=== PATIENT | female | born 1940 | race Two or more races ===

== ENCOUNTER 2019-05-23 23:22 | Inpatient (IN) | payer MEDICARE, MEDICAID ==
[~2019-05-23] VITALS: Ht 172.7 cm; Wt 48.7 kg
[2019-05-24 02:31] LABS: Albumin 3.6 g/dL (3.4-5.0); Anion Gap 9 (5-15); Blood Urea Nitrogen 8 mg/dL (7-18); Calcium 9.1 mg/dL (8.5-10.1); Carbon Dioxide 25 mmol/L (21-32); Chloride 105 mmol/L (98-107); Glucose 107 mg/dL (74-106); Magnesium 2.5 mg/dL (1.6-2.6); Potassium 3.7 mmol/L (3.5-5.1); Sodium 139 mmol/L (136-145)
[2019-05-24 02:33] LABS: BUN/Creatinine Ratio 15.7; Blood Alcohol < 3.0 mg/dL (0-5); GFR African American 150 mL/min; GFR Non-African American 124 mL/min
[2019-05-24 02:38] LABS: Alanine Aminotransferase 11 U/L (13-56); Alkaline Phosphatase 125 U/L (45-117); Aspartate Aminotransferase 23 U/L (15-37); Bilirubin, Total 0.7 mg/dL (0.2-1.0); Total Protein 8.5 g/dL (6.4-8.2)
[2019-05-24] MEDS ORDERED: fentaNYL CITRATE 100 MCG/2 ML VL IV ONE (02:45)
[2019-05-24 02:46] LABS: Basophils # (auto) 0.1 uL; Basophils % (auto) 0.7 % (0.0-2.0); Eosinophils # (auto) 0 uL; Eosinophils % (auto) 0.2 % (0.0-7.0); Hematocrit 43.4 % (36.0-46.0); Hemoglobin 15.1 g/dL (12.2-16.2); Lymphocytes # (auto) 2.3 uL; Lymphocytes % (auto) 18.7 % (10.0-50.0); Mean Corpuscular Hgb Conc. 34.8 g/dL (32.0-36.0); Mean Corpuscular Volume 89.2 fL (80.0-100.0); Monocytes # (auto) 0.8 uL; Monocytes % (auto) 6.2 % (0.0-12.0); Neutrophils # (auto) 9.1 uL; Neutrophils % (auto) 74.2 % (37.0-80.0); Nucleated Red Blood Cells % 0.3 %; Platelet Count (auto) 371 10^3/uL (140-450); Red Blood Cells 4.87 10^6/uL (4.0-5.20); Red Cell Distribution Width 13.9 % (11.8-14.3); White Blood Cell 12.3 10^3/uL (4.4-10.8)
[2019-05-24] MEDS ORDERED: ONDANSETRON HCL 4 MG/2 ML VIAL IV ONE (03:30)
[2019-05-24 04:22] LABS: Urine Bacteria NONE SEEN /hpf (None Seen); Urine Blood 2+ /uL (Negative); Urine Mucus FEW (None Seen); Urine Specific Gravity 1.017 (1.001-1.035); Urine WBC 15 /hpf (0 - 5)
[2019-05-24] MEDS ORDERED: LEVOFLOXACIN 750MG 150 ML IV ONE (05:30)
[2019-05-24] MEDS ORDERED: NITROGLYCERIN 0.4 MG SL TAB SL PRN (10:45)
[2019-05-24] MEDS ORDERED: ACETAMINOPHEN 500 MG TAB PO PRN (10:45)
[2019-05-24] MEDS ORDERED: ONDANSETRON HCL 4 MG/2 ML VIAL IV PRN (10:45)
[2019-05-24] MEDS ORDERED: ENALAPRILAT 1.25 MG/ML-1ML VIAL IV PRN (10:45)
[2019-05-24] MEDS ORDERED: MORPHINE SULF INJ 2 MG/ML SYRINGE 1ML IV PRN ×2 (10:45)
[2019-05-24] MEDS ORDERED: HYDROcodone-ACET 5/325MG TAB PO PRN (10:45)
[2019-05-24] MEDS ORDERED: DEXTROSE (50%) 50ML SYRG IV PRN (11:00)
[2019-05-24] MEDS: ACCU-CHEK COMFORT CURVE STRIP VI SCH ×3 (11:30→21:27)
[2019-05-24] MEDS: InsuLIN REG 1unit/0.01ml Soln (100units/ml) SC SCH ×3 (11:30→21:34)
--- NOTE | 2019-05-24 11:50 | NUR ---
Telemetry admit from ER DORINAJANIS admitted to Telemetry unit after SBAR received. Patient oriented to Roshni Corrales, RN primary RN, unit, room, bed, and unit policies regarding patient care and visiting hours. Patient now on continuous telemetry monitoring, tele box # 7 and telemetry reading on arrival to unit is []. Patient placed on bedside oxygen, weighed by bedscale and encouraged to call if they need something. All questions and concerns addressed, patient verbalized understanding. Note: Patient has a history of Alzheimer's disease and dementia. She is not able to provide information re medical history or home medications.
[2019-05-24 12:10] VITALS: BP 155/83
--- NOTE | 2019-05-24 13:00 | NUR ---
Patient refusing to be turned for skin assessment. Patient yells when moved. Extremities stiff, hand and feet show signs of arthritis. Will continue to monitor.
[2019-05-24] MEDS: SODIUM CHLORIDE 0.9% 1,000 ML IV SCH (14:00)
[2019-05-24 16:43] VITALS: BP 140/83
--- NOTE | 2019-05-24 17:34 | NUR ---
Patient is pleasantly confused, talks constantly. Patient turned for skin assessment. Skin to back and buttocks clear. Will continue to monitor.
--- NOTE | 2019-05-24 20:00 | NUR ---
RECEIVE IN BED IS TALKING TO HERSELF REPOSITIONED AND MADE COMFORTABLE
[2019-05-24 21:56] VITALS: BP 168/97
[2019-05-25] MEDS: SODIUM CHLORIDE 0.9% 1,000 ML IV SCH ×3 (02:00→21:00)
[2019-05-25 04:34] VITALS: BP 146/84
[2019-05-25 05:11] LABS: Basophils # (auto) 0 uL; Basophils % (auto) 0.4 % (0.0-2.0); Eosinophils # (auto) 0 uL; Eosinophils % (auto) 0.2 % (0.0-7.0); Hematocrit 38.7 % (36.0-46.0); Hemoglobin 13.2 g/dL (12.2-16.2); Lymphocytes # (auto) 1.6 uL; Lymphocytes % (auto) 15.8 % (10.0-50.0); Mean Corpuscular Hemoglobin 31.4 pg (28.0-32.0); Mean Corpuscular Volume 92.4 fL (80.0-100.0); Monocytes # (auto) 0.9 uL; Monocytes % (auto) 8.7 % (0.0-12.0); Neutrophils # (auto) 7.4 uL; Neutrophils % (auto) 74.9 % (37.0-80.0); Platelet Count (auto) 281 10^3/uL (140-450); Red Blood Cells 4.19 10^6/uL (4.0-5.20); Red Cell Distribution Width 13.8 % (11.8-14.3); White Blood Cell 9.8 10^3/uL (4.4-10.8)
[2019-05-25 05:23] LABS: Calcium 8.5 mg/dL (8.5-10.1); Potassium 3.6 mmol/L (3.5-5.1)
[2019-05-25 05:26] LABS: BUN/Creatinine Ratio 36.4
[2019-05-25] MEDS: ACCU-CHEK COMFORT CURVE STRIP VI SCH ×4 (06:31→22:00)
[2019-05-25] MEDS: InsuLIN REG 1unit/0.01ml Soln (100units/ml) SC SCH ×4 (06:32→21:59)
--- NOTE | 2019-05-25 07:30 | NUR ---
Opening Shift Note Assumed care of patient, awake and confused. No S/S of distress/SOB or pain. Instructed on POC and to call for assist PRN, will continue to monitor for changes Q1hr and PRN.
[2019-05-25 09:15] VITALS: BP 152/85
[2019-05-25] MEDS: ASPirin-EC 81 mg tab PO SCH (09:52)
[2019-05-25] MEDS: FAMOTIDINE 20 MG TAB PO SCH (09:52)
[2019-05-25] MEDS: cefTRIAXone 1GM/50ML D5W 50 ML IV SCH (09:53)
--- NOTE | 2019-05-25 11:00 | NUR ---
WOUND CARE NOTE: IN TO SEE PATIENT AT THIS TIME FOR SKIN INTEGRITY MONITORING. PATIENT WAS RECENTLY ADMITTED TO [facility] WITH DIAGNOSIS OF SEPSIS. CURRENT KIRAN SCORE IS 12. PATIENT HAS HISTORY WITH SEVERE OSTEOARTHRITIS. MOBILITY IS A MAJOR FACTOR, SHE IS IN SEVERE PAIN WITH ANY MOVEMENT. CURRENTLY, SHE IS BEDBOUND. PATIENT'S SKIN ASSESSED. SHE HAS PINK BONY PROMINENCES, NO OPEN OR DRAINING WOUNDS NOTED. REPOSITIONED PATIENT ONTO RIGHT SIDE, REDISTRIBUTING PRESSURE POINTS USING PILLOWS/WEDGES. RECOMMEND: SPECIALTY AIR MATTRESS, FREQUENT TURN SCHEDULE Q 2 HOURS, PRN CONDITION PERMITS, WITH PRESSURE REDISTRIBUTION USING PILLOWS/WEDGES, BID/PRN APPLICATION WITH MOISTURE BARRIER CREAM, OPTIFOAM GENTLE SACRAL DRESSING PREVENTATIVE, DIETARY CONSULT, SKIN/WOUND CARE PLAN, CONTINUED MONITORING BY WOUND CARE TEAM.
[2019-05-25 12:28] VITALS: BP 149/80
[2019-05-25 17:00] VITALS: BP 155/81
--- NOTE | 2019-05-25 20:00 | NUR ---
RECEIVE IN BED IS MADE AWARE SHE WILL BE PLACED ON AIR MATTRESS DENIES PAIN AT THIS TIME
[2019-05-25 21:48] VITALS: BP 139/71
--- NOTE | 2019-05-26 | NUR ---
IS ON AIR MATTRESS KEEPS TALKING TO HERSELF IS CONFUSED MADE COMFORTABLE
[2019-05-26] MEDS: SODIUM CHLORIDE 0.9% 1,000 ML IV SCH ×3 (03:00→18:35)
[2019-05-26 04:56] VITALS: BP 153/82
--- NOTE | 2019-05-26 08:00 | NUR ---
Received pt resting in bed, call light within reach, air mattress on, walton draining to gravity, pt refused complete skin assessment, pt stated that she does not want to be bother right now and does not want to be moved at this time, and that pt was just turned. will continue to monitor pt.
--- NOTE | 2019-05-26 08:30 | NUR ---
Dr. Diaz at bed side to see pt with charge nurse, doctor seen pt and discussed the plan of care with pt.
[2019-05-26 09:00] VITALS: BP 126/100
[2019-05-26 10:00] VITALS: BP 141/66
[2019-05-26] MEDS: ASPirin-EC 81 mg tab PO SCH (11:01)
[2019-05-26] MEDS: cefTRIAXone 1GM/50ML D5W 50 ML IV SCH (11:02)
[2019-05-26] MEDS: FAMOTIDINE 20 MG TAB PO SCH (11:02)
[2019-05-26] MEDS: InsuLIN REG 1unit/0.01ml Soln (100units/ml) SC SCH ×2 (11:30→17:00)
[2019-05-26] MEDS: ACCU-CHEK COMFORT CURVE STRIP VI SCH ×2 (11:30→17:00)
[2019-05-26 13:00] VITALS: BP 155/56
--- NOTE | 2019-05-26 15:30 | NUR ---
ancillary services manager Wendy talked to pt regarding hospice, pt decided to go back to [facility], as per manager social responsibility place an [facility]
--- NOTE | 2019-05-26 16:40 | NUR ---
assessment Patient is a 78 year old female who is answering appropriately. Per patient prior to admission she was at a SNF. Per patient before SNF she was at a facility, but does not know the name. Patient was on hospice with [facility] at facility. Per patient she wants to return to SNF before making a decision on hospice. I informed patient she has a right to speak to a social science professor regarding all care. I informed patient she has a right to participate in any and all discharge planning. Patient does not have a POA and advanced directive. I have offered patient information on POA and advanced directives. I informed the patient the advantages and benefits of having an Advanced Directive. Patient verbalized understanding and agreed to discharge plan. Addendum: 05/26/19 at 1647 by Wendy ORTIZ Amended: Links added.
[2019-05-26 17:00] VITALS: BP 155/76
--- NOTE | 2019-05-26 17:00 | NUR ---
Called and spoke to Dr. Diaz to inform him that secondary social studies teacher spoke to pt and pt requested to be transfer to [facility], orders received to complete snf transfer paperwork.
--- NOTE | 2019-05-26 18:21 | NUR ---
D/C Planning Per consult for Pt to return to [facility] for physical therapy. Contacted [facility] Ph:) Fax:) faxed medical records. Per Pilar from [facility] Pt has been accepted to room 31a accepting MD Dr. Kim. Contacted [facility] Ph:( [phone]) spoke to Tyson. Per Tyson from [facility] transportation will be arrange at 21:45 via [facility]. Advised ANN-MARIE gonzalez. Addendum: 05/26/19 at 1824 by NETO MAYO Amended: Links added.
--- NOTE | 2019-05-26 18:26 | NUR ---
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
[2019-05-26 18:29] VITALS: BP 155/76
--- NOTE | 2019-05-26 19:03 | NUR ---
Discharge instructions given as ordered. Encourage to follow up with PMD as instructed. All questions and concerns addressed. Patient verbalized understanding. Medication reconciliation form completed and copy given to patient. No home medications held in Pharmacy returned to patient, and no needed vaccines to be given. Report given to night time nanny nurse to remove IV, tele, walton prior discharge, awaiting for transport.
--- NOTE | 2019-05-26 19:50 | NUR ---
Walton catheter dc'd Order to discontinue walton catheter. Walton dc'd with clean technique following deflation of balloon. Patient tolerated well with no complaints of pain. Continue care.
--- NOTE | 2019-05-26 19:51 | NUR ---
IV removal IV DC'd with clean sterile technique, catheter fully intact. Pressure dressing applied to site. Patient tolerated well.
--- NOTE | 2019-05-26 19:52 | NUR ---
TELE BOX REMOVED. PATIENT TOLERATED WELL. CLEANED AND SENT TO SHEET CUTTING OPERATOR.
--- NOTE | 2019-05-26 19:53 | NUR ---
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 PATIENT IN NO ACUTE S/S OF DISTRESS OR SOB. REPORT GIVEN. ALL BELONGINGS LEFT WITH PATIENT. ALL DISCHARGE DOCUMENTS GIVEN TO PATIENT.
== END 2019-05-26 19:53 | DRG 871 ==
LOC: EDBD 23:22 → ER 23:27 → TELE 23:28 → TELE-CENTR 05-24 11:50
PROVIDERS: ADMIT Nurse Practitioner Acute Care; ATTEND Family Medicine
DX: A41.9 Sepsis, unspecified organism (principal); G93.41 Metabolic encephalopathy; N39.0 Urinary tract infection, site not specified; F02.80 Dementia in other diseases classified elsewhere, unspecified severity, without behavioral disturbance, psychotic disturbance, mood disturbance, and anxiety; G30.9 Alzheimer's disease, unspecified; I10 Essential (primary) hypertension; M06.9 Rheumatoid arthritis, unspecified; E86.0 Dehydration; E11.9 Type 2 diabetes mellitus without complications; Z96.642 Presence of left artificial hip joint; M05.00 Felty's syndrome, unspecified site; Z66 Do not resuscitate; M81.0 Age-related osteoporosis without current pathological fracture; Z86.73 Personal history of transient ischemic attack (TIA), and cerebral infarction without residual deficits; Z79.84 Long term (current) use of oral hypoglycemic drugs; Z79.899 Other long term (current) drug therapy
CPT/HCPCS: 36415; 51702; 70450; 72192; 80048; 80053; 80320; 81001; 82962; 83735; 84484; 85025; 87040; 87081; 87086; 93005; 96365; 96375; G0378; J0696; J1956; J2405